=== PATIENT | female | born 1965 | race Caucasian/White ===

== ENCOUNTER 2017-12-15 20:20 | Emergency (ER) | payer MEDICAID ==
[~2017-12-15] VITALS: Ht 147.3 cm; Wt 79.0 kg
[~2017-12-15 20:20] MED LIST: ASPI-1182 PO; INSLAN SQ; INSNOV SQ; LISI-662 PO; METF500T6 PO
[2017-12-15] MEDS ORDERED: INSLAN SQ ×2 (20:37)
[2017-12-15] MEDS ORDERED: SITA25 PO (20:37)
[2017-12-15] MEDS ORDERED: PREG50 PO (20:37)
[2017-12-15] MEDS ORDERED: VALS80TA2 PO (20:37)
[2017-12-15 20:38] LABS: GLUCOSE,POINT OF CARE 169 MG/DL (70-110)
[2017-12-15 20:56] LABS: APPEARANCE,URINE CLEAR (CLEAR); BILIRUBIN,URINE NEGATIVE (NEGATIVE); GLUCOSE, URINE (UA) >=1000 mg/dL (NEGATIVE); KETONES,URINE NEGATIVE (NEGATIVE); LEUKOCYTE ESTERASE ,URINE NEGATIVE (NEGATIVE); NITRATE,URINE NEGATIVE (NEGATIVE); OCCULT BLOOD,URINE TRACE (NEGATIVE); PROTEIN,URINE SEE CONFIRM (NEGATIVE); UROBILINOGEN,URINE 0.2 mg/dL (<=1.0)
[2017-12-15] MEDS ORDERED: SODIUM CHLORIDE 0.9% 100 ML ONE (20:56)
[2017-12-15] MEDS ORDERED: IOVERSOL 320 MG/ML 100 ML VIAL ONE (20:56)
[2017-12-15 21:04] LABS: BASOPHILS % (AUTO) 1.4 % (0.0-2.0); EOSINOPHILS % (AUTO) 1.1 % (1.0-6.0); HEMATOCRIT 33.5 % (36-46); HEMOGLOBIN 10.6 g/dL (12.0-16.0); LYMPHOCYTES # (AUTO) 1.7 K/uL (1.0-4.8); LYMPHOCYTES % (AUTO) 31.5 % (22.0-44.0); MEAN CORPUSCULAR HEMOGLOBIN 21.9 pg (26.0-34.0); MEAN CORPUSCULAR HGB CONC 31.5 G/dL (31.0-37.0); MEAN CORPUSCULAR VOLUME 70 fL (80-100); MONOCYTES # (AUTO) 0.4 K/uL (0.1-1.0); MONOCYTES % (AUTO) 6.7 % (2.0-9.0); NEUTROPHILS # (AUTO) 3.2 K/uL (1.8-7.7); NEUTROPHILS % (AUTO) 59.3 % (40.0-70.0); PLATELET COUNT (AUTO) 309 K/uL (150-450); RED BLOOD CELL COUNT(AUTO) 4.81 MIL/uL (4.00-5.20); RED CELL DISTRIBUTION WIDTH 16.8 % (11.5-14.5)
[2017-12-15 21:09] LABS: BACTERIA,URINE Rare /HPF (None Seen); SULFOSALICYLIC ACID,URINE 2+ (Negative); WBC,URINE 0-2 /HPF (0-5)
[2017-12-15 21:12] LABS: ANION GAP 6 mmol/L (8-16); CALCIUM, TOTAL 8.7 mg/dL (8.8-10.5); CARBON DIOXIDE 29 mmol/L (22-29); CHLORIDE 105 mmol/L (98-107); CREATININE 0.73 mg/dL (0.60-1.30); GLOMERULAR FILTR. RATE CALC > 60 mL/min (>60); GLUCOSE,RANDOM 205 mg/dL (70-110); POTASSIUM 3.9 mmol/L (3.5-5.1); SODIUM SERUM 140 mmol/L (136-145); UREA NITROGEN, BLOOD 24 mg/dL (7-18)
[2017-12-15 21:18] LABS: ALANINE AMINOTRANSFERASE 12 U/L (12-78); ALBUMIN 3.2 g/dL (3.4-5.0); ALKALINE PHOSPHATASE 112 U/L (46-116); ASPARTATE AMINOTRANSFERASE 19 U/L (15-37); BILIRUBIN,TOTAL 0.3 mg/dL (0.1-1.0); LIPASE 86 U/L (73-393); TOTAL PROTEIN, SERUM 7.8 g/dL (6.4-8.2)
[2017-12-15] MEDS ORDERED: IBUPROFEN 800 MG TABLET PO ONE (23:00)
[2017-12-15 23:31] VITALS: BP 133/67
== END 2017-12-15 23:38 | disposition home or self-care (01) ==
LOC: EMS 20:21
DX: R10.11 Right upper quadrant pain (principal); R81 Glycosuria; D64.9 Anemia, unspecified; E11.9 Type 2 diabetes mellitus without complications; I10 Essential (primary) hypertension; I25.2 Old myocardial infarction; Z79.4 Long term (current) use of insulin
CPT/HCPCS: 36415; 74177; 80053; 81001; 82962; 83690; 85025; 99285; J7050; Q9967

== ENCOUNTER 2021-11-22 05:41 | Day surgery (SDC) | payer MEDICAID ==
[~2021-11-22] VITALS: Ht 121.9 cm; Wt 81.8 kg
[~2021-11-22 05:41] MED LIST changes: -ASPI-1182 PO; +ASPI-1444 PO; -INSNOV SQ; -LISI-662 PO; -METF500T6 PO; +PREG50 PO; +SITA25 PO; +VALS80TA2 PO
[2021-11-22] MEDS ORDERED: ALBUTEROL SULFATE 2.5 MG/0.5 ML NEB SOLUTION NEB ONE (05:42)
[2021-11-22] MEDS ORDERED: LIDOCAINE 2% 30 ML JELLY TP ONE (05:42)
[2021-11-22] MEDS ORDERED: LIDOCAINE 4% 50 ML SOLUTION TP ONE (05:42)
[2021-11-22] MEDS ORDERED: BENZOCAINE 20% 50 MCG/SPRAY 57 GM TP ONE (05:42)
[2021-11-22] MEDS ORDERED: SODIUM CHLORIDE 0.9% 1,000 ML IV ONE (06:00)
[2021-11-22] MEDS ORDERED: SODIUM CHLORIDE 0.9% 1,000 ML ONE (06:36)
[2021-11-22 06:49] LABS: COVID AG,FIA SOURCE NASAL SWAB
[2021-11-22] MEDS ORDERED: FentaNYL CITRATE PF 100 MCG/2 ML VIAL ONE (07:29)
[2021-11-22] MEDS ORDERED: MIDAZOLAM HCL 5 MG/ML VIAL ONE (07:30)
[2021-11-22] MEDS ORDERED: INSU100I26 SQ (07:39)
[2021-11-22] MEDS ORDERED: ATOR-2 PO (07:39)
[2021-11-22] MEDS ORDERED: ESTR-95 PO (07:39)
[2021-11-22] MEDS ORDERED: NIFE30TA98 PO (07:40)
[2021-11-22] MEDS ORDERED: LINA5TAB PO (07:40)
[2021-11-22] MEDS ORDERED: METF-446 PO (07:40)
[2021-11-22] MEDS ORDERED: LISI20TA24 PO (07:40)
[2021-11-22 08:11] LABS: GLUCOMETER DEV NAME(LOC) SDS.; GLUCOSE,POINT OF CARE 135 MG/DL (70-110)
[2021-11-22] MEDS ORDERED: MethylPREDNISolone SOD SUCC 125 MG/2 ML VIAL IVP ONE (09:00)
[2021-11-22] MEDS ORDERED: MethylPREDNISolone SOD SUCC 125 MG/2 ML VIAL ONE (09:29)
[2021-11-22] MEDS ORDERED: OXYGEN THERAPY IH SCH (20:00)
== END 2021-11-22 11:00 | disposition home or self-care (01) ==
LOC: SURGERY 05:41
PROVIDERS: ATTEND Internal Medicine Critical Care Medicine
DX: J38.4 Edema of larynx (principal); B37.0 Candidal stomatitis; I10 Essential (primary) hypertension; F41.9 Anxiety disorder, unspecified; E78.00 Pure hypercholesterolemia, unspecified; G62.9 Polyneuropathy, unspecified; M47.9 Spondylosis, unspecified; Z90.710 Acquired absence of both cervix and uterus; Z98.890 Other specified postprocedural states; Z90.49 Acquired absence of other specified parts of digestive tract; Z79.899 Other long term (current) drug therapy
CPT/HCPCS: 31623; 31624; 71045; 82962; 87015; 87070; 87101; 87206; 87220; 87426; 88112; 88184; 88185; 88305; 88312; 93005; C9803; J2250; J2930; J3010; J7030; J7613; Z7610